=== PATIENT | male | born 2000 | race Caucasian/White ===

== ENCOUNTER 2023-04-06 18:56 | Emergency (ER) | payer OTHER ==
[2023-04-06 19:09] VITALS: BP 117/65; PULSE 67; RESP 16; TEMP 97.9; BMI 27.4
[2023-04-06] MEDS ORDERED: KETOROLAC TROMETHAMINE 30 MG/1 ML VIAL IM ONE (19:38)
[2023-04-06] MEDS ORDERED: KETOROLAC TROMETHAMINE 30 MG/1 ML VIAL ONE (19:45)
== END 2023-04-06 20:32 | disposition home or self-care (01) ==
LOC: JERFT 18:56
PROC: 3E0233Z Introduction of Anti-inflammatory into Muscle, Percutaneous Approach (ICD-10-PCS; principal; 2023-04-06)
DX: M25.572 Pain in left ankle and joints of left foot (principal); R22.42 Localized swelling, mass and lump, left lower limb
CPT/HCPCS: 99284-25

== ENCOUNTER 2023-06-04 17:37 | Emergency (ER) | payer OTHER ==
[2023-06-04 17:50] VITALS: BP 133/77; PULSE 87; RESP 18; TEMP 97.4; BMI 27.0
[2023-06-04] MEDS ORDERED: KETOROLAC TROMETHAMINE 30 MG/1 ML VIAL IM ONE (18:22)
[2023-06-04] MEDS ORDERED: KETOROLAC TROMETHAMINE 30 MG/1 ML VIAL ONE (18:24)
== END 2023-06-04 19:48 | disposition home or self-care (01) ==
LOC: JER 17:37 → JERFT 17:37
PROC: 3E0233Z Introduction of Anti-inflammatory into Muscle, Percutaneous Approach (ICD-10-PCS; principal; 2023-06-04)
DX: M25.572 Pain in left ankle and joints of left foot (principal); M65.272 Calcific tendinitis, left ankle and foot
CPT/HCPCS: 73610-TC-LT-FY; 73630-TC-LT; 99284-25

== ENCOUNTER 2024-10-29 12:43 | Day surgery (SDC) | payer OTHER ==
[2024-10-29 13:10] VITALS: BMI 31.8
[2024-10-29] MEDS ORDERED: ROPIVACAINE HCL/PF 100 MG/20 ML VIAL ONE (13:46)
[2024-10-29] MEDS ORDERED: MIDAZOLAM HCL 2 MG/2 ML SINGLE DOSE VIAL ONE (13:46)
[2024-10-29] MEDS ORDERED: DEXAMETHASONE SOD PHOSPHATE 10 MG/1 ML VIAL ONE (13:46)
[2024-10-29] MEDS ORDERED: PROPOFOL 40 ML ONE (13:53)
[2024-10-29] MEDS ORDERED: PROPOFOL 20 ML ONE (16:05)
[2024-10-29] MEDS: ACETAMINOPHEN 1000 MG/100 ML BAG IVPB PRN (16:59)
[2024-10-29] MEDS ORDERED: LACTATED RINGERS SOLUTION 1,000 ML IV SCH (17:00)
[2024-10-29] MEDS ORDERED: FENTANYL CITRATE/PF 50 MCG/ML VIAL ONE ×2 (17:11→17:15)
[2024-10-29] MEDS ORDERED: oxyCODONE HCL 5 MG TABLET PO PRN ×2 (17:18)
[2024-10-29] MEDS ORDERED: oxyCODONE HCL 5 MG TABLET ONE (17:35)
[2024-10-29 19:20] VITALS: TEMP 97.2
[2024-10-29 19:25] VITALS: BP 132/89; PULSE 85; RESP 19
== END 2024-10-29 18:58 | disposition home or self-care (01) ==
LOC: FER 12:43 → FASU 12:58
PROVIDERS: ATTEND Orthopaedic Surgery Sports Medicine
PROC: 0QSK04Z Reposition Left Fibula with Internal Fixation Device, Open Approach (ICD-10-PCS; principal; 2024-10-29 14:45)
DX: S82.62XA Displaced fracture of lateral malleolus of left fibula, initial encounter for closed fracture (principal); X58.XXXA Exposure to other specified factors, initial encounter; Y93.9 Activity, unspecified; Y92.9 Unspecified place or not applicable
CPT/HCPCS: 27792; 27829; C1713; 73610-TC-LT-FY; 94760; 99285-25; J0131; J1100